=== PATIENT | male | born 2000 | race Caucasian/White ===

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

== ENCOUNTER 2019-06-11 20:30 | Emergency (ER) | payer SELFPAY ==
[~2019-06-11] VITALS: Ht 182.9 cm; Wt 89.0 kg
[2019-06-11 20:36] VITALS: BP 124/75
--- NOTE | 2019-06-11 20:42 | NUR ---
LEFT KNEE SURGERY DECEMBER 21, 2018. PT STATES HE HEARD A POP IN HIS KNEE YESTERDAY AND NOTICED PAIN AND SWELLING IN KNEE TODAY.
--- NOTE | 2019-06-11 21:49 | NUR ---
Patient/Caregiver given discharge instructions and they have confirmed that they understand the instructions. Patient ambulatory with steady gait.
== END 2019-06-11 21:50 | disposition home or self-care (01) ==
LOC: ED 21:40
DX: S83.92XA Sprain of unspecified site of left knee, initial encounter (principal); X50.1XXA Overexertion from prolonged static or awkward postures, initial encounter; Y93.89 Activity, other specified; Y92.009 Unspecified place in unspecified non-institutional (private) residence as the place of occurrence of the external cause; Y99.8 Other external cause status
CPT/HCPCS: 99283

== ENCOUNTER 2020-01-23 06:59 | Emergency (ER) | payer OTHER ==
[~2020-01-23] VITALS: Ht 182.9 cm; Wt 83.8 kg
[2020-01-23] MEDS ORDERED: OXYcodone/APAP 10/325MG TABLET PO ONE (08:30)
[2020-01-23] MEDS ORDERED: BUPIVACAINE/PF-EPI 0.25% 1:200K SQ ONE (08:30)
[2020-01-23] MEDS ORDERED: KETAMINE 10 MG/ML, 20ML IV ONE (08:30)
[2020-01-23] MEDS ORDERED: L.E.T SOLUTION TP ONE ×2 (08:30→08:54)
[2020-01-23] MEDS ORDERED: BUPIVACAINE 0.25% ONE (08:53)
[2020-01-23] MEDS ORDERED: OXYcodone/APAP 5/325MG TABLET ONE (08:53)
[2020-01-23] MEDS ORDERED: CLINDAMYCIN PMX 600MG/50ML 50 ML ONE (08:54)
[2020-01-23] MEDS ORDERED: KETAMINE 10 MG/ML, 20ML ONE (08:54)
[2020-01-23] MEDS ORDERED: CLINDAMYCIN PMX 600MG/50ML 50 ML IVPB ONE (09:00)
[2020-01-23] MEDS ORDERED: OXYcodone/APAP 10/325MG TABLET ONE (09:05)
[2020-01-23] MEDS ORDERED: LIDOCAINE 1%-EPI 1:100K, 20ML ONE (09:54)
[2020-01-23 10:47] VITALS: BP 113/43
--- NOTE | 2020-01-23 10:48 | NUR ---
Patient/Caregiver given discharge instructions and they have confirmed that they understand the instructions. Patient ambulatory with steady gait.
== END 2020-01-23 10:50 | disposition home or self-care (01) ==
LOC: ED 10:44
DX: L02.31 Cutaneous abscess of buttock (principal)
CPT/HCPCS: 10060; 87070; 87075; 87205; 96365; 96372

== ENCOUNTER 2020-01-25 07:24 | Emergency (ER) | payer OTHER ==
[~2020-01-25] VITALS: Ht 182.9 cm; Wt 86.0 kg
[2020-01-25 07:33] VITALS: BP 110/60
== END 2020-01-25 08:20 | disposition home or self-care (01) ==
LOC: ED 08:04
DX: Z48.01 Encounter for change or removal of surgical wound dressing (principal)
CPT/HCPCS: 99281

== ENCOUNTER 2020-07-18 23:57 | Emergency (ER) | payer BC ==
[~2020-07-18] VITALS: Ht 188 cm; Wt 82.3 kg
--- NOTE | 2020-07-19 01:57 | NUR ---
REPORT TO [facility]. PT DENIES ANY CURRENT NEEDS. CALL [facility].
[2020-07-19 02:46] VITALS: BP 128/73
== END 2020-07-19 02:50 | disposition home or self-care (01) ==
LOC: ED 07-19 00:40
DX: N49.2 Inflammatory disorders of scrotum (principal); L04.1 Acute lymphadenitis of trunk; F17.210 Nicotine dependence, cigarettes, uncomplicated
CPT/HCPCS: 76857; 99284; 99406